=== PATIENT | male | born 1990 ===

== ENCOUNTER 2023-01-23 23:46 | Emergency (ER) | payer SELFPAY ==
[~2023-01-23] VITALS: Ht 165 cm; Wt 74.0 kg
--- NOTE | 2023-01-24 00:21 | ED General ---
General Chief Complaint: COVID19 Suspect/Confirmed Stated Complaint: SORE THROAT/HEADACHE/FEVER Nursing Triage Note: TO ED VIA POV AND AMBULATORY TO ROOM 9 WITH USE OF VIDEO SCREW CUTTER. PT C/O SORE THROAT, CHILLS, PHLEGM. PT ALSO STATES HE TRAVELED HERE FOR AN "EMERGENCY" AND IS NOT FROM HERE AND HAS NOT HAD DIALYSIS FOR SEVERAL DAYS. 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 NOT NOW HE IS HERE VISITING FROM [place], [place] FOR THE LAST WEEK-REPORTEDLY FOR A FAMILY OF NOTE, PT DOES NOT HAVE AN I.D. AND WILL NOT GIVE REGISTRATION ANY INFORMATION OTHER THAN NAME AND DATE OF . PT IS A DIALYSIS PATIENT AND HAS NOT HAD DIALYSIS SINCE LAST Saturday01/18/23--HE HAS NOT ATTEMPTED TO MAKE PRIOR ARRANGEMENTS TO GET DIALYSIS HERE AT ANY TIME FOR THE LAST WEEK. PT HAS RIGHT CENTRAL LINE FOR DIALYSIS. STATES HE CAME HERE TO GET DIALYSIS. ( PT WAS ADVISED THAT WE DO NOT HAVE DIALYSIS ) HE STATES HE HAS BEEN ON DIALYSIS FOR 3 MONTHS PT IS INSULIN DEPENDENT DIABETIC--DX AT AGE 16 AND HAS HTN AND HYPERLIPIDEMIA HE HAS NOT CHECKED HIS BLOOD SUGAR TODAY HE CLAIMS HE HAS TAKEN HIS MEDICATIONS TODAY NO SWELLING NO CHEST PAIN NO DIZZINESS NO GI SYMPTOMS PT IS NOT COVID OR FLU VACCINATED Allergies and Home Medications Allergies Coded Allergies: No Known Drug Allergies (Unverified , 01/24/23) Patient Home Medication List Home Medication List Reviewed: Yes Review of Systems Review of Systems Constitutional: chills EENTM: see HPI, nose congestion, throat pain Respiratory: see HPI, short of breath Cardiovascular: no symptoms reported Gastrointestinal: no symptoms reported Genitourinary: see HPI Musculoskeletal: no symptoms reported Skin: no symptoms reported Psychiatric/Neurological: See HPI, Headache Hematologic/Lymphatic: No Symptoms Reported Immunological/Allergic: no symptoms reported Past Ymjmgtz-Gpvzfc-Jlkyza Hx Patient Social History Tobacco Use?: No Substance use?: No Alcohol Use?: No Past Medical History Surgeries: Yes (RIGHT CENTRAL LINE FOR DIALYSIS) Dialysis Respiratory: No Cardiac: Yes High Cholesterol, Hypertension Neurological: No Genitourinary: Yes (ESRD ON HEMODIALYSIS) Renal Failure Gastrointestinal: No Musculoskeletal: No Endocrine: Yes (TYPE 1 DIABETIC DX AGE 16. TAKES INSULIN + GLIPIZIDE) HEENT: No Cancer: No Psychosocial: No Integumentary: No Blood Disorders: No Physical Exam Vital Signs Vital Signs - First Documented 01/24/23 01/24/23 00:06 01:47 Temp 37.1 Pulse 97 Resp 16 B/P (MAP) 189/115 (139) Pulse Ox 92 O2 Delivery Room Air O2 Flow Rate 2.00 Capillary Refill : Less Than 3 Seconds Height, Weight, BMI Height: '" Weight: lbs. oz. kg; 2.00 BMI Method: General Appearance: No Apparent Distress, WD/WN, Other (DOES NOT APPEAR ILL OR TO BE IN ANY DISCOMFORT OR DISTRESS. ) HEENT: PERRL/EOMI, TMs Normal, Normal ENT Inspection, Pharynx Normal Neck: Full Range of Motion, Normal Inspection, Non Tender, Supple; No JVD Respiratory: Normal Breath Sounds, No Accessory Muscle Use, No Respiratory Distress, Other (RIGHT CENTRAL LINE FOR DIALYSIS --NO SIGNS OF INFECTIN) Cardiovascular: Regular Rate, Rhythm, No Edema, No Gallop, No JVD, No Murmur, Normal Peripheral Pulses Gastrointestinal: Non Tender, Soft Back: No CVA Tenderness Extremity: Normal Capillary Refill, Normal Inspection, Normal Range of Motion, Non Tender, No Calf Tenderness, No Pedal Edema Neurologic/Psychiatric: Alert, Oriented x3, No Motor/Sensory Deficits, Normal Mood/Affect, study manager II-XII Norm as Tested Skin: Normal Color (), Warm/Dry; No Rash Progress/Results/Core Measures Suspected Sepsis SIRS Temperature: Pulse: 97 Respiratory Rate: 16 Laboratory Tests 01/24/23 00:17: White Blood Count 13.3H Blood Pressure 189 /115 Mean: 139 Laboratory Tests 01/24/23 00:17: Creatinine 13.60H, Platelet Count 238, Total Bilirubin 0.4 Results/Orders Lab Results Laboratory Tests Test 01/24/23 00:05 01/24/23 00:17 01/24/23 00:18 01/24/23 01:00 Range/Units Influenza Type A (RT-PCR) Not Detected Not Detecte Influenza Type B (RT-PCR) Not Detected Not Detecte SARS-CoV-2 RNA (RT-PCR) Not Detected Not Detecte Group A Streptococcus Screen Not Detected NotDetected White Blood Count 13.3 H 4.3-11.0 10^3/uL Red Blood Count 4.44 4.30-5.52 10^6/uL Hemoglobin 13.4 13.3-17.7 g/dL Hematocrit 40 40-54 % Mean Corpuscular Volume 90 80-99 fL Mean Corpuscular Hemoglobin 30 25-34 pg Mean Corpuscular Hemoglobin Concent 34 32-36 g/dL Red Cell Distribution Width 12.4 10.0-14.5 % Platelet Count 238 130-400 10^3/uL Mean Platelet Volume 9.8 9.0-12.2 fL Immature Granulocyte % (Auto) 0 % Neutrophils (%) (Auto) 74 42-75 % Lymphocytes (%) (Auto) 17 12-44 % Monocytes (%) (Auto) 6 0-12 % Eosinophils (%) (Auto) 3 0-10 % Basophils (%) (Auto) 1 0-10 % Neutrophils # (Auto) 9.8 H 1.8-7.8 10^3/uL Lymphocytes # (Auto) 2.2 1.0-4.0 10^3/uL Monocytes # (Auto) 0.8 0.0-1.0 10^3/uL Eosinophils # (Auto) 0.4 H 0.0-0.3 10^3/uL Basophils # (Auto) 0.1 0.0-0.1 10^3/uL Immature Granulocyte # (Auto) 0.1 0.0-0.1 10^3/uL Sodium Level 142 135-145 MMOL/L Potassium Level 5.0 3.6-5.0 MMOL/L Chloride Level 106 98-107 MMOL/L Carbon Dioxide Level 20 L 21-32 MMOL/L Anion Gap 16 H 5-14 MMOL/L Blood Urea Nitrogen 60 H 7-18 MG/DL Creatinine 13.60 H 0.60-1.30 MG/DL Estimat Glomerular Filtration Rate 5 BUN/Creatinine Ratio 4 Glucose Level 188 H 70-105 MG/DL Calcium Level 7.6 L 8.5-10.1 MG/DL Corrected Calcium 8.1 L 8.5-10.1 MG/DL Magnesium Level 1.9 1.6-2.4 MG/DL Total Bilirubin 0.4 0.1-1.0 MG/DL Aspartate Amino Transf (AST/SGOT) 14 5-34 U/L Alanine Aminotransferase (ALT/SGPT) 16 0-55 U/L Alkaline Phosphatase 163 H 40-136 U/L Total Protein 6.1 L 6.4-8.2 GM/DL Albumin 3.4 3.2-4.5 GM/DL Serum Alcohol < 10 <10 MG/DL Glucometer 182 H 70-110 MG/DL Blood Gas Puncture Site RRAD Blood Gas Patient Temperature 37.1 Arterial Blood pH 7.39 7.37-7.43 Arterial Blood Partial Pressure CO2 43 35-45 MMHG Arterial Blood Partial Pressure O2 43 L 79-93 MMHG Arterial Blood HCO3 25 23-27 MMOL/L Arterial Blood Total CO2 26.6 21.0-31.0 MMOL/L Arterial Blood Oxygen Saturation 75 L 94-100 % Arterial Blood Base Excess 0.9 -2.5-2.5 MMOL/L Deny Test YES-POS Blood Gas Ventilator Setting NO Blood Gas Inspired Oxygen RA Test 01/24/23 01:30 Range/Units Urine Color YELLOW Urine Clarity CLEAR Urine pH 8.5 5-9 Urine Specific Sutton 1.020 1.016-1.022 Urine Protein 3+ H NEGATIVE Urine Glucose (UA) 2+ H NEGATIVE Urine Ketones NEGATIVE NEGATIVE Urine Nitrite NEGATIVE NEGATIVE Urine Bilirubin NEGATIVE NEGATIVE Urine Urobilinogen 0.2 < = 1.0 MG/DL Urine Leukocyte Esterase NEGATIVE NEGATIVE Urine RBC (Auto) 2+ H NEGATIVE Urine RBC 0-2 /HPF Urine WBC RARE /HPF Urine Squamous Epithelial Cells RARE /HPF Urine Crystals NONE /LPF Urine Bacteria NEGATIVE /HPF Urine Casts NONE /LPF Urine Mucus SMALL H /LPF Urine Culture Indicated NO Urine Opiates Screen NEGATIVE NEGATIVE Urine Oxycodone Screen NEGATIVE NEGATIVE Urine Methadone Screen NEGATIVE NEGATIVE Urine Propoxyphene Screen NEGATIVE NEGATIVE Urine Barbiturates Screen NEGATIVE NEGATIVE Ur Tricyclic Antidepressants Screen NEGATIVE NEGATIVE Urine Phencyclidine Screen NEGATIVE NEGATIVE Urine Amphetamines Screen NEGATIVE NEGATIVE Urine Methamphetamines Screen NEGATIVE NEGATIVE Urine Benzodiazepines Screen NEGATIVE NEGATIVE Urine Cocaine Screen NEGATIVE NEGATIVE Urine Cannabinoids Screen NEGATIVE NEGATIVE My Orders Orders - ISIS HALL DO Covid 19 Inhouse Test (01/24/23 00:04) Influenza A And B By Pcr (01/24/23 00:04) Rapid Strep A Screen (01/24/23 00:04) Accucheck Stat ONCE (01/24/23 00:13) Ed Iv/Invasive Line Start (01/24/23 00:13) Ekg Tracing (01/24/23 00:13) Monitor-Rhythm Ecg Trace Only (01/24/23 00:13) Chest 1 View, Ap/Pa Only (01/24/23 00:13) Cbc With Automated Diff (01/24/23 00:13) Comprehensive Metabolic Panel (01/24/23 00:13) Magnesium (01/24/23 00:13) Hydralazine Injection (Hydralazine Injec (01/24/23 01:00) Arterial Blood Gas (01/24/23 00:51) Alcohol (01/24/23 01:28) Drug Screen Stat (Urine) (01/24/23 01:28) Ua Culture If Indicated (01/24/23 01:28) Labetalol Injection (Sdv) (Labetalol Inj (01/24/23 01:45) O2 (01/24/23 01:46) Medications Given in ED Current Medications Medications Dose Ordered Sig/Zina Route Start Time Stop Time Status Last Admin Dose Admin Hydralazine HCl 10 mg ONCE ONCE IV 01/24/23 01:00 01/24/23 01:01 DC 01/24/23 00:58 10 MG Labetalol HCl 20 mg ONCE ONCE IV 01/24/23 01:45 01/24/23 01:46 DC 01/24/23 01:54 20 MG Vital Signs/I&O 01/24/23 01/24/23 01/24/23 01/24/23 00:06 00:06 01:47 01:58 Temp 37.1 36.8 Pulse 97 97 Resp 16 B/P (MAP) 189/115 (139) 157/112 (127) Pulse Ox 92 96 O2 Delivery Room Air Room Air Nasal Cannula Nasal Cannula O2 Flow Rate 2.00 2.00 Capillary Refill : Less Than 3 Seconds Blood Pressure Mean: 139 Progress Note : Progress Note VITALS ON ARRIVAL: TEMP 37.1=98.8, HR 97, RR 16, BP 189/115, O2 SAT 92% ON ROOM AIR ACCUCHECK 182 GIVEN: -HYDRALAZINE -LABETALOL LABS: -CBC 13.3, OTHERWISE UNREMARKABLE -CMP WITH NA 142, K 5.0, CO2 20, ANION GAP 16, BUN 60, CR 13.6, GLU 18, CALCIUM 7.6 -UA WITH 3+ PROTEIN, 2+ GLUCOSE -ETOH NEGATIVE -UDS NEGATIVE -COVID, FLU, STREP ALL NEGATIVE -ABG UNREMARKABLE WITH PH 7.39 CXR SHOWS FLUID OVERLOAD, PENDING RADIOLOGIST REVIEW EKG SHOWS IVCD NO COUGH NO DYSPNEA NO HYPOXIA NO FEVER NO DETERIORATION IN PT'S CONDITION DURING ER STAY NO SIGNIFICANT CHANGE IN BP WITH MEDICATION, AND NO DROP IN HEART RATE WITH LABETALOL DISCUSSED TEST RESULTS, NEED FOR TRANSFER AND PT IS AGREEABLE TO PLAN ECG Initial ECG Impression Date: Jan 24, 2023 Initial ECG Impression Time: 00:23 Initial ECG Rate: 94 Initial ECG Rhythm: Normal Sinus Initial ECG Intervals RI 135 QRS 110 QT/QTC 363/414 Initial ECG Comparisson: No Previous ECG Available Comment INTERPRETED BY ME Diagnostic Imaging Comments CXR--FLUID OVERLOAD, PENDING RADIOLOGIST REVIEW Reviewed: Reviewed by Me Departure Communication (Admissions) 0052--CALLED [facility], NO BEDS 0054--CALLED [facility]. THEY WILL CALL BACK 0131--SPOKE WITH DR. PAREDES, HOSPITALIST AT [facility]. ACCEPTS PT FOR ADMIT Impression Primary Impression: ESRD (end stage renal disease) on dialysis Additional Impressions: COVID LIKE ILLNESS Uncontrolled hypertension TYPE 1 IDDM Fluid overload Disposition: 02 XFER SHT-TRM HOSP Condition: Stable Transfer Transfer Reason: Exceeds level of care (DIALYSIS/NEPHROLOGY SERVICES UNAVAILABLE HERE) Transfer Facility: [facility] Method of Transfer: EMS ISIS HALL DO Jan 24, 2023 00:21
[2023-01-24 00:31] LABS: BASOPHILS # (AUTO) 0.1 10^3/uL (0.0-0.1); BASOPHILS % (AUTO) 1 % (0-10); EOSINOPHILS # (AUTO) 0.4 10^3/uL (0.0-0.3); EOSINOPHILS % (AUTO) 3 % (0-10); HEMATOCRIT 40 % (40-54); HEMOGLOBIN 13.4 g/dL (13.3-17.7); LYMPHOCYTES # (AUTO) 2.2 10^3/uL (1.0-4.0); LYMPHOCYTES % (AUTO) 17 % (12-44); MEAN CORPUSCULAR HEMOGLOBIN 30 pg (25-34); MEAN CORPUSCULAR HGB CONC 34 g/dL (32-36); MEAN CORPUSCULAR VOLUME 90 fL (80-99); MEAN PLATELET VOLUME 9.8 fL (9.0-12.2); MONOCYTES # (AUTO) 0.8 10^3/uL (0.0-1.0); MONOCYTES % (AUTO) 6 % (0-12); NEUTROPHILS # (AUTO) 9.8 10^3/uL (1.8-7.8); NEUTROPHILS % (AUTO) 74 % (42-75); PLATELET COUNT 238 10^3/uL (130-400); WHITE BLOOD COUNT 13.3 10^3/uL (4.3-11.0)
[2023-01-24 00:42] LABS: ALBUMIN 3.4 GM/DL (3.2-4.5)
[2023-01-24 00:43] LABS: CALCIUM 7.6 MG/DL (8.5-10.1)
[2023-01-24 00:44] LABS: TOTAL PROTEIN 6.1 GM/DL (6.4-8.2)
[2023-01-24 00:46] LABS: BILIRUBIN,TOTAL 0.4 MG/DL (0.1-1.0)
[2023-01-24 00:48] LABS: CREATININE SERUM 13.6 MG/DL (0.60-1.30)
[2023-01-24 00:51] LABS: MAGNESIUM 1.9 MG/DL (1.6-2.4)
[2023-01-24] MEDS ORDERED: hydrALAZINE INJECTION 20 MG/ML VIAL IV ONE (01:00)
[2023-01-24 01:06] LABS: ABG BASE EXCESS 0.9 MMOL/L (-2.5-2.5); ABG OXYGEN SATURATION 75 % (94-100); ABG PCO2 43 MMHG (35-45); ABG PH 7.39 (7.37-7.43); ABG PO2 43 MMHG (79-93); ABG TCO2 26.6 MMOL/L (21.0-31.0)
[2023-01-24 01:07] LABS: ALLENS TEST YES-POS; INSPIRED O2 RA; PATIENT TEMP 37.1; VENTILATOR NO
[2023-01-24 01:42] LABS: CLARITY,URINE CLEAR; COLOR,URINE YELLOW; GLUCOSE, URINE (UA) 2+ (NEGATIVE); PH,URINE 8.5 (5-9); PROTEIN,URINE 3+ (NEGATIVE)
[2023-01-24 01:43] LABS: BILIRUBIN,URINE NEGATIVE (NEGATIVE); KETONES,URINE NEGATIVE (NEGATIVE); LEUKOCYTE ESTERASE ,URINE NEGATIVE (NEGATIVE); NITRITE,URINE NEGATIVE (NEGATIVE)
[2023-01-24 01:45] LABS: BACTERIA,URINE NEGATIVE /HPF; RBC,URINE 0-2 /HPF; SQUAMOUS EPITHELIAL CELL,UR RARE /HPF; WBC,URINE RARE /HPF
[2023-01-24] MEDS ORDERED: LABETALOL 5 mg/ml 4 ML SINGLE DOSE SYRINGE IV ONE (01:45)
[2023-01-24 01:51] LABS: AMPHETAMINE SCREEN, URINE NEGATIVE (NEGATIVE); BARBITURATE SCREEN URINE NEGATIVE (NEGATIVE); BENZODIAZEPINES SCREEN URINE NEGATIVE (NEGATIVE); CANNABINOID SCREEN, URINE NEGATIVE (NEGATIVE); COCAINE SCREEN URINE NEGATIVE (NEGATIVE); METHADONE STAT NEGATIVE (NEGATIVE); OPIATE SCREEN URINE NEGATIVE (NEGATIVE); OXYCODONE STAT NEGATIVE (NEGATIVE); PROPOXYPHENE STAT NEGATIVE (NEGATIVE); TRICYCLIC ANTIDEPRESSANTS SCRE NEGATIVE (NEGATIVE)
[2023-01-24 03:22] VITALS: BP 174/102
--- NOTE | 2023-01-24 08:15 | Diagnostic Imaging Report ---
INDICATION: Fluid overload FINDINGS: Right IJ dialysis catheter tip is at the cavoatrial junction. Heart size upper limits. There is some mild prominence of the central and upper lobe pulmonary vessels as well as likely multifocal areas of pulmonary edema, correlate clinically as pneumonia could not be excluded in the appropriate scenario. No pleural fluid. No pneumothorax. IMPRESSION: There is a likely some borderline cardiomegaly, venous congestion and likely multifocal pulmonary edema. The possibility of pneumonia in the appropriate clinical scenario could not be excluded. Central line in good position with no pneumothorax or convincing pleural fluid. Dictated by: Dictated on workstation # [id number]
== END 2023-01-24 03:22 | disposition short-term general hospital (02) ==
LOC: ER 23:50
DX: E10.22 Type 1 diabetes mellitus with diabetic chronic kidney disease (principal); I12.0 Hypertensive chronic kidney disease with stage 5 chronic kidney disease or end stage renal disease; N18.6 End stage renal disease; E87.70 Fluid overload, unspecified; Z99.2 Dependence on renal dialysis; Z28.310 Unvaccinated for COVID-19; Z20.822 Contact with and (suspected) exposure to COVID-19
CPT/HCPCS: 71045; 80053; 80306; 81000; 82805; 82947; 83735; 85025; 87430; 87636; 93005; 93041; 99291; G0480; 36415; 80320

== ENCOUNTER → 2023-02-27 | Outpatient (CLI) | payer SELFPAY | LOC: LABNPT 15:57 | PROVIDERS: ATTEND Internal Medicine Nephrology | DX: Z99.2 Dependence on renal dialysis (principal) | CPT/HCPCS: 82330 ==

== ENCOUNTER 2023-03-10 14:12 | Emergency (ER) | payer SELFPAY ==
[~2023-03-10] VITALS: Ht 165 cm; Wt 73.4 kg
[2023-03-10 14:56] LABS: BASOPHILS # (AUTO) 0.1 10^3/uL (0.0-0.1); BASOPHILS % (AUTO) 0 % (0-10); EOSINOPHILS % (AUTO) 0 % (0-10); HEMATOCRIT 27 % (40-54); HEMOGLOBIN 9.3 g/dL (13.3-17.7); LYMPHOCYTES # (AUTO) 0.9 10^3/uL (1.0-4.0); LYMPHOCYTES % (AUTO) 6 % (12-44); MEAN CORPUSCULAR HEMOGLOBIN 29 pg (25-34); MEAN CORPUSCULAR HGB CONC 34 g/dL (32-36); MEAN CORPUSCULAR VOLUME 85 fL (80-99); MEAN PLATELET VOLUME 10.6 fL (9.0-12.2); MONOCYTES # (AUTO) 0.6 10^3/uL (0.0-1.0); MONOCYTES % (AUTO) 4 % (0-12); NEUTROPHILS # (AUTO) 13.6 10^3/uL (1.8-7.8); NEUTROPHILS % (AUTO) 90 % (42-75); PLATELET COUNT 175 10^3/uL (130-400); WHITE BLOOD COUNT 15.2 10^3/uL (4.3-11.0)
--- NOTE | 2023-03-10 14:59 | ED Cough/URI ---
General Chief Complaint: Fever-Adult/Adol Stated Complaint: CHEST PAIN/SOA Nursing Triage Note: PT TO RM 2 BY WC WITH C/O FEVER, COUGH, CHEST PAIN , SOB X2 DAYS Source: patient Exam Limitations: no limitations, language barrier History of Present Illness Date Seen by Provider: Mar 10, 2023 Time Seen by Provider: 14:57 Initial Comments Patient is a 33-year-old male who is speaking who presents ED with sore throat chills coughing up phlegm headache shortness of breath some mild chest pain. Symptoms started last night. Patient is currently on dialysis. Receives dialysis 3 times a week. Patient does have a right central line for dialysis. Patient states symptoms became worse today with some substernal chest pain. Does not appear to have swelling in his lower extremities. Patient does have a history of hypertension and diabetes. Has not taken his medication today. Patient reports some vomiting. Denies of any diarrhea. States he is able to urinate. Currently follows a lobby porter who patient cannot recall. Allergies and Home Medications Allergies Coded Allergies: No Known Drug Allergies (Unverified , 01/24/23) Patient Home Medication List Home Medication List Reviewed: Yes Review of Systems Review of Systems Constitutional: No chills, No diaphoresis; malaise, weakness EENTM: No ear pain, No blurred vision, No double vision Respiratory: cough; No dyspnea on exertion; short of breath Cardiovascular: chest pain Gastrointestinal: No abdominal pain; diarrhea; No nausea, No vomiting Genitourinary: No decreased output, No discharge Musculoskeletal: No back pain Skin: No change in color, No change in hair/nails All Other Systems Reviewed Negative Unless Noted: Yes Past Fbvnuhd-Lwqmlp-Rmbbpl Hx Patient Social History Tobacco Use?: No Substance use?: No Alcohol Use?: No Pt feels they are or have been: No Immunizations Up To Date Influenza Vaccine Up-to-Date: Yes; Up-to-Date Past Medical History Surgery/Hospitalization HX: DM, DAILYSIS, HTN, HLD Surgeries: Yes (RIGHT CENTRAL LINE FOR DIALYSIS) Dialysis Respiratory: No Cardiac: Yes High Cholesterol, Hypertension Neurological: No Genitourinary: Yes (ESRD ON HEMODIALYSIS) Renal Failure Gastrointestinal: No Musculoskeletal: No Endocrine: Yes (TYPE 1 DIABETIC DX AGE 16. TAKES INSULIN + GLIPIZIDE) HEENT: No Cancer: No Psychosocial: No Integumentary: No Blood Disorders: No Physical Exam Vital Signs - First Documented 03/10/23 03/10/23 14:15 14:25 Temp 37.6 Pulse 110 Resp 24 B/P (MAP) 200/112 (141) Pulse Ox 93 O2 Delivery Room Air O2 Flow Rate 2.00 Capillary Refill : Height: '" Weight: lbs. oz. kg; 26.00 BMI Method: General Appearance: WD/WN, no apparent distress Eyes: Bilateral Eye Normal Inspection, Bilateral Eye PERRL, Bilateral Eye EOMI HEENT: PERRL/EOMI, normal ENT inspection, TMs normal, pharynx normal Neck: non-tender, full range of motion Respiratory: chest non-tender, lungs clear, normal breath sounds, no respiratory distress Cardiovascular: regular rate, rhythm, no edema, no gallop, no JVD Gastrointestinal: normal bowel sounds, non tender, soft Extremities: normal range of motion, non-tender, normal inspection, no pedal edema Neurologic/Psychiatric: dental intern II-XII nml as tested, no motor/sensory deficits, alert, normal mood/affect, oriented x 3 Skin: normal color, warm/dry Focused Exam Lactate Level 03/10/23 14:25: Lactic Acid Level 1.30 Lactic Acid Level Laboratory Tests Test 03/10/23 14:25 Lactic Acid Level 1.30 MMOL/L (0.50-2.00) Progress/Results/Core Measures Suspected Sepsis SIRS Temperature: Pulse: 110 Respiratory Rate: 24 Laboratory Tests 03/10/23 14:25: White Blood Count 15.2H Blood Pressure 200 /112 Mean: 141 03/10/23 14:25: Lactic Acid Level 1.30 Laboratory Tests 03/10/23 14:25: Creatinine 10.51H, INR Comment 1.1, Platelet Count 175, Total Bilirubin 0.8 Results/Orders Lab Results Laboratory Tests Test 03/10/23 14:19 03/10/23 14:20 03/10/23 14:25 03/10/23 14:56 Range/Units Glucometer 240 H 70-110 MG/DL Influenza Type A (RT-PCR) Not Detected Not Detecte Influenza Type B (RT-PCR) Not Detected Not Detecte SARS-CoV-2 RNA (RT-PCR) Not Detected Not Detecte White Blood Count 15.2 H 4.3-11.0 10^3/uL Red Blood Count 3.18 L 4.30-5.52 10^6/uL Hemoglobin 9.3 L 13.3-17.7 g/dL Hematocrit 27 L 40-54 % Mean Corpuscular Volume 85 80-99 fL Mean Corpuscular Hemoglobin 29 25-34 pg Mean Corpuscular Hemoglobin Concent 34 32-36 g/dL Red Cell Distribution Width 12.6 10.0-14.5 % Platelet Count 175 130-400 10^3/uL Mean Platelet Volume 10.6 9.0-12.2 fL Immature Granulocyte % (Auto) 0 % Neutrophils (%) (Auto) 90 H 42-75 % Lymphocytes (%) (Auto) 6 L 12-44 % Monocytes (%) (Auto) 4 0-12 % Eosinophils (%) (Auto) 0 0-10 % Basophils (%) (Auto) 0 0-10 % Neutrophils # (Auto) 13.6 H 1.8-7.8 10^3/uL Lymphocytes # (Auto) 0.9 L 1.0-4.0 10^3/uL Monocytes # (Auto) 0.6 0.0-1.0 10^3/uL Eosinophils # (Auto) 0.0 0.0-0.3 10^3/uL Basophils # (Auto) 0.1 0.0-0.1 10^3/uL Immature Granulocyte # (Auto) 0.0 0.0-0.1 10^3/uL Neutrophils % (Manual) 93 % Lymphocytes % (Manual) 4 % Monocytes % (Manual) 3 % Eosinophils % (Manual) 0 % Basophils % (Manual) 0 % Band Neutrophils 0 % Blood Morphology Comment NORMAL Prothrombin Time 14.7 12.2-14.7 SEC INR Comment 1.1 0.8-1.4 Activated Partial Thromboplast Time 30 24-35 SEC Sodium Level 139 135-145 MMOL/L Potassium Level 3.9 3.6-5.0 MMOL/L Chloride Level 101 98-107 MMOL/L Carbon Dioxide Level 20 L 21-32 MMOL/L Anion Gap 18 H 5-14 MMOL/L Blood Urea Nitrogen 58 H 7-18 MG/DL Creatinine 10.51 H 0.60-1.30 MG/DL Estimat Glomerular Filtration Rate 6 BUN/Creatinine Ratio 6 Glucose Level 249 H 70-105 MG/DL Lactic Acid Level 1.30 0.50-2.00 MMOL/L Calcium Level 7.0 L 8.5-10.1 MG/DL Corrected Calcium 7.6 L 8.5-10.1 MG/DL Total Bilirubin 0.8 0.1-1.0 MG/DL Aspartate Amino Transf (AST/SGOT) 13 5-34 U/L Alanine Aminotransferase (ALT/SGPT) 19 0-55 U/L Alkaline Phosphatase 145 H 40-136 U/L Total Protein 5.9 L 6.4-8.2 GM/DL Albumin 3.3 3.2-4.5 GM/DL Troponin I 0.090 H <0.028 NG/ML My Orders Orders - DUTCH MARTINEZ Covid 19 Inhouse Test (03/10/23 14:21) Influenza A And B By Pcr (03/10/23 14:21) Cbc And Automated Diff (03/10/23 14:48) Comprehensive Metabolic Panel (03/10/23 14:48) Blood Culture (03/10/23 14:48) Sputum Culture (03/10/23 14:48) Urinalysis (03/10/23 14:48) Urine Culture (03/10/23 14:48) Protime With Inr (03/10/23 14:48) Partial Thromboplastin Time (03/10/23 14:48) Chest 1 View, Ap/Pa Only (03/10/23 14:48) Ed Iv/Invasive Line Start (03/10/23 14:48) Vital Signs Adult Sepsis Patie Q15M (03/10/23 14:48) O2 (03/10/23 14:48) Remove Rings In Anticipation O (03/10/23 14:48) Lactic Acid Analyzer (03/10/23 14:48) Troponin I Morris (03/10/23 14:55) Labetalol Injection (Sdv) (Labetalol Inj (03/10/23 15:00) Manual Differential (03/10/23 14:25) Cefepime Injection (Cefepime Injection) (03/10/23 15:45) Ipratropium/Albuterol Inh Soln (Ipratrop (03/10/23 18:15) Svn Small Volume Nebulizer (03/10/23 18:07) Methylprednisolone Sod Succ (Methylpredn (03/10/23 18:30) Rt Ed Bilevel Assessment (03/10/23 18:33) Bipap (Bilevel) Set Up (03/10/23 18:33) Heart Healthy (03/10/23 Dinner) Medications Given in ED Current Medications Medications Dose Ordered Sig/Zina Route Start Time Stop Time Status Last Admin Dose Admin Albuterol/ Ipratropium 3 ml ONCE ONCE INH 03/10/23 18:15 03/10/23 18:16 DC 03/10/23 18:28 3 ML Cefepime HCl 1000 mg/Sodium Chloride 50 ml @ 100 mls/hr ONCE ONCE IV 03/10/23 15:45 03/10/23 16:14 DC 03/10/23 16:00 100 MLS/HR Labetalol HCl 10 mg ONCE ONCE IV 03/10/23 15:00 03/10/23 15:01 DC 03/10/23 15:05 10 MG Methylprednisolone Sodium Succinate 80 mg ONCE ONCE IV 03/10/23 18:30 03/10/23 18:31 DC 03/10/23 18:34 80 MG Vital Signs/I&O 03/10/23 03/10/23 03/10/23 03/10/23 14:15 14:25 18:30 18:39 Temp 37.6 Pulse 110 111 Resp 24 B/P (MAP) 200/112 (141) Pulse Ox 93 92 93 96 O2 Delivery Room Air Nasal Cannula Nasal Cannula O2 Flow Rate 2.00 2.00 30.00 03/10/23 21:54 Pulse 96 Resp 19 Pulse Ox 98 O2 Flow Rate 25.00 Capillary Refill : Blood Pressure Mean: 141 Point of Care Testing Finger Stick Blood Glucose: 240 Blood Glucose Action Taken: RN notified ECG Comment Ectopic atrial tachycardia with short MT interval, possible left atrial argu ment, incomplete right bundle branch block, possible right ventricular hypertrophy, 114 bpm, QRS duration 96 MS, QTc 398 MS Departure Communication (PCP) speaking. [employer] was used. History of chronic kidney disease requiring dialysis 3 times a week, hypertension, diabetes. Told nursing staff he did dialysis 3 days ago. He is scheduled for dialysis Saturday. States he did do his dialysis this past week. Patient cannot recall who his lobby porter is. Patient was seen here in January transferred for pneumonia versus pulmonary edema. Patient with a low-grade temperature 37.6. Septic work-up was initiated. Flulike symptoms since yesterday. Reports cough shortness of breath. CBC, CMP, lipase, cardiac work-up COVID influenza and chest x-ray. EKG without evidence of ST elevation or depression. White blood count of 15. Chemistry showed creatinine of 10 GFR 6 fairly stable. Blood sugar 249. Had a slight increase of troponin 0.090. He had chest pain before arrival but no current chest pain at this time. Lactic acid 1.30. Chest x-ray shows multifocal pneumonia versus pulmonary edema versus arts. Patient oxygen was in the upper 80s lower 90s. He was tachypneic. 2 L of oxygen was placed for comfort with improvement to 94 to 95%. Did receive a DuoNeb breathing treatment received Solu-Medrol 80 mg. Received a dose of cefepime. He was hypertensive here and has not taken his blood pressure medication. Received labetalol 10 mg without much improvement. Contacted [facility] with no current beds at this time. Contacted [facility] talk to Dr. Lazo ER physician who agreed to accept patient. Do not have dialysis at our facility which warrant transfer at this time. Contacted ground have no current transportation at this time. Due to weather no air transportation. Patient was held in our ER. Patient was placed on BiPAP for more comfort to help with perfusion. His heart rate did improve as well as his blood pressure after starting BiPAP. Patient states he was feeling much better. He does not produce much urine. Did not obtain a urinalysis here. At 11 PM med flight agreed to transfer patient to [facility]. Patient is currently stable at this time oxygen 97% on BiPAP. Heart rate improved to 92 bpm. Blood pressure improved to 156/105. Impression Primary Impression: Pneumonia Additional Impressions: Respiratory distress Pulmonary edema Disposition: 02 XFER SHT-TRM HOSP Condition: Stable Transfer BH Medically Cleared for Xfer: Yes Transfer Reason: Exceeds level of care Time Spoke to Accepting Phy: 15:[address] Lazo Transfer Time: 15:31 Transfer Facility: [facility] Method of Transfer: Air ([facility] mature adult care unit) Departure-Patient Inst. Referrals: NO,LOCAL PHYSICIAN (PCP/Family) Primary Care Physician DUTCH MARTINEZ Mar 10, 2023 14:59
[2023-03-10] MEDS ORDERED: LABETALOL 5 mg/ml 4 ML SINGLE DOSE SYRINGE IV ONE (15:00)
[2023-03-10 15:03] LABS: ALBUMIN 3.3 GM/DL (3.2-4.5); POTASSIUM 3.9 MMOL/L (3.6-5.0)
[2023-03-10 15:05] LABS: TOTAL PROTEIN 5.9 GM/DL (6.4-8.2)
[2023-03-10 15:07] LABS: BILIRUBIN,TOTAL 0.8 MG/DL (0.1-1.0)
[2023-03-10 15:09] LABS: CREATININE SERUM 10.51 MG/DL (0.60-1.30)
[2023-03-10 15:13] LABS: INR 1.1 (0.8-1.4); PROTHROMBIN TIME PATIENT 14.7 SEC (12.2-14.7)
--- NOTE | 2023-03-10 15:33 | Diagnostic Imaging Report ---
EXAMINATION: Chest 1 view HISTORY: Shortness of breath. COMPARISON: 01/24/2023. FINDINGS: Right internal jugular approach double lumen dialysis catheter is in place. The cardiac silhouette is stable. Increasing patchy and hazy opacities are seen throughout both lungs since the prior exam. No pleural effusion or pneumothorax. IMPRESSION: 1. Worsening opacities throughout both lungs, which may represent edema, ARDS, or multifocal infection. Dictated by: Dictated on workstation # [id number]
[2023-03-10 15:40] LABS: BAND NEUTROPHILS 0 %; BASOPHILS % (MANUAL) 0 %; EOSINOPHILS % (MANUAL) 0 %; LYMPHOCYTES % (MANUAL) 4 %; MONOCYTES % (MANUAL) 3 %; NEUTROPHILS % (MANUAL) 93 %; RBC MORPH NORMAL
[2023-03-10] MEDS ORDERED: CEFEPIME INJECTION 1,000 MG in NS (IVPB) 50 ML 50 ML IV ONE (15:45)
[2023-03-10] MEDS ORDERED: CEFEPIME 1 GM/10 ML VIAL ONE (15:55)
[2023-03-10] MEDS ORDERED: RT-Ipratropium/Albuterol NEB 3 ML VIAL INH ONE (18:15)
[2023-03-10] MEDS ORDERED: methylPREDNISolone INJ 40 MG/ML VIAL IV ONE (18:30)
[2023-03-10 18:39] VITALS: BP 190/120
[2023-03-10 21:54] VITALS: BP 169/112
[2023-03-10 23:00] VITALS: BP 153/101
== END 2023-03-10 23:30 | disposition short-term general hospital (02) ==
LOC: EDUNIT# 14:12 → ER 14:15
DX: J18.9 Pneumonia, unspecified organism (principal); R06.03 Acute respiratory distress; J81.1 Chronic pulmonary edema; E10.22 Type 1 diabetes mellitus with diabetic chronic kidney disease; I12.0 Hypertensive chronic kidney disease with stage 5 chronic kidney disease or end stage renal disease; N18.6 End stage renal disease; Z99.2 Dependence on renal dialysis
CPT/HCPCS: 36415; 71045; 80053; 82947; 83605; 84484; 85007; 85027; 85610; 85730; 87040; 87636; 93005; 94640; 94660; 94664; 96365; 96375

== ENCOUNTER 2023-03-21 00:54 | Emergency (ER) | payer SELFPAY ==
[~2023-03-21] VITALS: Ht 167.7 cm; Wt 72.6 kg
--- NOTE | 2023-03-21 01:12 | ED General ---
General Stated Complaint: SOA Source of Information: Patient Exam Limitations: Language Barrier History of Present Illness Date Seen by Provider: Mar 21, 2023 Time Seen by Provider: 00:58 Initial Comments 33-year-old male presents via EMS. 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 He tells me he has felt unwell for 3 days. He is short of breath, especially with lying flat. He does have end-stage renal disease and is on dialysis. He dialyzes Saturday and states he did have dialysis completed this morning. He believes he has had fevers to 102 and has a productive cough. He tells me he is still on antibiotics after recent diagnosis of pneumonia. Record review shows he was transferred to [place] on 03/10 for pulmonary edema versus pneumonia. All other systems reviewed and negative except documented per HPI. Voice recognition software was used to help create this chart Allergies and Home Medications Allergies Coded Allergies: No Known Drug Allergies (Unverified , 01/24/23) Patient Home Medication List Home Medication List Reviewed: Yes Review of Systems Review of Systems Constitutional: see HPI Past [id number]-Rishlp Hx Patient Social History Tobacco Use?: No Use of E-Cig and/or Vaping dev: No Substance use?: No Alcohol Use?: No Past Medical History Surgery/Hospitalization HX: DM, DAILYSIS, HTN, HLD Surgeries: Yes (RIGHT CENTRAL LINE FOR DIALYSIS) Dialysis Respiratory: No Cardiac: Yes High Cholesterol, Hypertension Neurological: No Genitourinary: Yes (ESRD ON HEMODIALYSIS) Renal Failure Gastrointestinal: No Musculoskeletal: No Endocrine: Yes (TYPE 1 DIABETIC DX AGE 16. TAKES INSULIN + GLIPIZIDE) HEENT: No Cancer: No Psychosocial: No Integumentary: No Blood Disorders: No Physical Exam Vital Signs Vital Signs - First Documented Capillary Refill : Height, Weight, BMI Height: '" Weight: lbs. oz. kg; 26.00 BMI Method: General Appearance: No Apparent Distress, WD/WN HEENT: Normal ENT Inspection, Pharynx Normal Neck: Normal Inspection, Non Tender, Supple Respiratory: Chest Non Tender, Normal Breath Sounds, No Accessory Muscle Use, No Respiratory Distress, Other (mild hypoxia) Cardiovascular: Regular Rate, Rhythm, No Murmur, Normal Peripheral Pulses Gastrointestinal: Normal Bowel Sounds, No Organomegaly, Non Tender, Soft Extremity: Normal Capillary Refill, Normal Inspection, Normal Range of Motion, No Pedal Edema Neurologic/Psychiatric: Alert, Oriented x3, No Motor/Sensory Deficits Skin: Normal Color, Warm/Dry Focused Exam Lactate Level 03/21/23 01:10: Lactic Acid Level 1.64 Lactic Acid Level Laboratory Tests Test 03/21/23 01:10 Lactic Acid Level 1.64 MMOL/L (0.50-2.00) Progress/Results/Core Measures Suspected Sepsis SIRS Temperature: Pulse: Respiratory Rate: Laboratory Tests 03/21/23 01:10: White Blood Count 9.5 Blood Pressure / Mean: 03/21/23 01:10: Lactic Acid Level 1.64 Laboratory Tests 03/21/23 01:10: Creatinine 6.83H, Platelet Count 219, Total Bilirubin 0.4 Results/Orders Lab Results Laboratory Tests Test 03/21/23 01:10 03/21/23 01:16 03/21/23 07:02 03/21/23 07:42 Range/Units White Blood Count 9.5 4.3-11.0 10^3/uL Red Blood Count 2.73 L 4.30-5.52 10^6/uL Hemoglobin 8.0 L 13.3-17.7 g/dL Hematocrit 24 L 40-54 % Mean Corpuscular Volume 86 80-99 fL Mean Corpuscular Hemoglobin 29 25-34 pg Mean Corpuscular Hemoglobin Concent 34 32-36 g/dL Red Cell Distribution Width 13.0 10.0-14.5 % Platelet Count 219 130-400 10^3/uL Mean Platelet Volume 9.9 9.0-12.2 fL Immature Granulocyte % (Auto) 0 % Neutrophils (%) (Auto) 67 42-75 % Lymphocytes (%) (Auto) 25 12-44 % Monocytes (%) (Auto) 6 0-12 % Eosinophils (%) (Auto) 2 0-10 % Basophils (%) (Auto) 1 0-10 % Neutrophils # (Auto) 6.4 1.8-7.8 10^3/uL Lymphocytes # (Auto) 2.3 1.0-4.0 10^3/uL Monocytes # (Auto) 0.5 0.0-1.0 10^3/uL Eosinophils # (Auto) 0.2 0.0-0.3 10^3/uL Basophils # (Auto) 0.1 0.0-0.1 10^3/uL Immature Granulocyte # (Auto) 0.0 0.0-0.1 10^3/uL Sodium Level 135 135-145 MMOL/L Potassium Level 4.1 3.6-5.0 MMOL/L Chloride Level 94 L 98-107 MMOL/L Carbon Dioxide Level 28 21-32 MMOL/L Anion Gap 13 5-14 MMOL/L Blood Urea Nitrogen 30 H 7-18 MG/DL Creatinine 6.83 H 0.60-1.30 MG/DL Estimat Glomerular Filtration Rate 10 BUN/Creatinine Ratio 4 Glucose Level 438 *H 70-105 MG/DL Lactic Acid Level 1.64 0.50-2.00 MMOL/L Calcium Level 7.1 L 8.5-10.1 MG/DL Corrected Calcium 7.9 L 8.5-10.1 MG/DL Total Bilirubin 0.4 0.1-1.0 MG/DL Aspartate Amino Transf (AST/SGOT) 14 5-34 U/L Alanine Aminotransferase (ALT/SGPT) 21 0-55 U/L Alkaline Phosphatase 122 40-136 U/L Troponin I 0.157 H <0.028 NG/ML B-Type Natriuretic Peptide 931.2 H <100.0 PG/ML Total Protein 5.5 L 6.4-8.2 GM/DL Albumin 3.0 L 3.2-4.5 GM/DL Influenza Type A (RT-PCR) Not Detected Not Detecte Influenza Type B (RT-PCR) Not Detected Not Detecte SARS-CoV-2 RNA (RT-PCR) Not Detected Not Detecte Glucometer 58 *L 186 H 70-110 MG/DL Test 03/21/23 10:25 03/21/23 13:47 03/21/23 16:01 Range/Units Glucometer 274 H 294 H 298 H 70-110 MG/DL Micro Results Microbiology 03/21/23 Blood Culture - Preliminary, Resulted 03/21/23 Blood Culture - Preliminary, Resulted My Orders Orders - NITHYA HEATH DO Comprehensive Metabolic Panel (03/21/23 01:06) Chest 1 View, Ap/Pa Only (03/21/23 01:06) Cbc And Automated Diff (03/21/23 01:06) Bnp Swift (03/21/23 01:06) Blood Culture (03/21/23 01:06) Lactic Acid Analyzer (03/21/23 01:06) Vital Signs (03/21/23 01:06) Ed Iv/Invasive Line Start (03/21/23 01:06) Ipratropium/Albuterol Inh Soln (Ipratrop (03/21/23 01:15) Svn Small Volume Nebulizer (03/21/23 01:06) Troponin I Vashti (03/21/23 01:12) Covid 19 Inhouse Test (03/21/23 01:12) Ekg Tracing (03/21/23 01:12) Influenza A And B By Pcr (03/21/23 01:12) Insulin Aspart (Per Unit) (Insulin Aspar (03/21/23 02:45) General/Regular (03/21/23 Breakfast) Iv Push Claims Counsel Ed (03/21/23 ) Im/Sub-Q Injection Non-Ab Ed (03/21/23 ) Medications Given in ED Vital Signs/I&O 03/21/23 03/21/23 03/21/23 00:54 00:54 16:07 Temp 36.2 Pulse 92 106 Resp 24 17 B/P (MAP) 161/129 (140) 192/149 Pulse Ox 95 100 O2 Delivery Nasal Cannula Nasal Cannula Nasal Cannula O2 Flow Rate 2.00 2.00 3.00 Capillary Refill : Progress Note : Time: 02:43 Progress Note Patient is hemodynamically stable outside of some very mild hypoxia. Started on 2 L of oxygen via nasal cannula remained stable thereafter. Chest x-ray independently reviewed by myself showing some moderate pulmonary edema. Is greatly improved from prior comparison. No focal infiltrate to indicate pneumonia, no leukocytosis he is afebrile so I do not think there is an infectious component at this time. He has been on antibiotics we will hold on giving additional antibiotics for now. Labs are reassuring as are the remainder of his vitals. He is in no distress. I spoke with Dr. Blum at [facility] in [place] who accepts the patient in admission. Unfortunately patient transport states that he likely will not have any beds until the morning after discharges. We do not have ground transport anyway so I think it is likely fine for him to wait here until there is a bed available. He remained stable throughout the evening ECG Comment Sinus rhythm with rate of 90 bpm. Normal intervals. Normal axis. No ST or T wave abnormalities. No ectopy. No STEMI. No evidence for hyperkalemia. Departure Communication (Admissions) Patient has mild hypoxia, moderate pulmonary edema on his chest x-ray on independent review. Labs are reassuring. He is placed on 2 L oxygen via nasal cannula. He states he has not missed any dialysis however I question if he was actually dialyzed this morning. I spoke with hospitalist at [facility] in [place] who accepts the patient in transfer. They will not have beds until the morning so the patient will be boarded overnight with close observation. Patient ultimately transported in stable condition. Impression Primary Impression: ESRD (end stage renal disease) on dialysis Additional Impressions: Pulmonary edema Qualified Codes: J81.0 - Acute pulmonary edema Hyperglycemia Disposition: XFER SHT-TRM HOSP Condition: Stable Departure-Patient Inst. Referrals: NO,LOCAL PHYSICIAN (PCP/Family) Primary Care Physician NITHYA HEATH DO Mar 21, 2023 01:12
[2023-03-21] MEDS ORDERED: RT-Ipratropium/Albuterol NEB 3 ML VIAL INH ONE (01:15)
[2023-03-21 01:25] LABS: BASOPHILS # (AUTO) 0.1 10^3/uL (0.0-0.1); BASOPHILS % (AUTO) 1 % (0-10); EOSINOPHILS # (AUTO) 0.2 10^3/uL (0.0-0.3); EOSINOPHILS % (AUTO) 2 % (0-10); HEMATOCRIT 24 % (40-54); LYMPHOCYTES # (AUTO) 2.3 10^3/uL (1.0-4.0); LYMPHOCYTES % (AUTO) 25 % (12-44); MEAN CORPUSCULAR HEMOGLOBIN 29 pg (25-34); MEAN CORPUSCULAR HGB CONC 34 g/dL (32-36); MEAN CORPUSCULAR VOLUME 86 fL (80-99); MEAN PLATELET VOLUME 9.9 fL (9.0-12.2); MONOCYTES # (AUTO) 0.5 10^3/uL (0.0-1.0); MONOCYTES % (AUTO) 6 % (0-12); NEUTROPHILS # (AUTO) 6.4 10^3/uL (1.8-7.8); NEUTROPHILS % (AUTO) 67 % (42-75); PLATELET COUNT 219 10^3/uL (130-400); WHITE BLOOD COUNT 9.5 10^3/uL (4.3-11.0)
[2023-03-21 01:40] LABS: POTASSIUM 4.1 MMOL/L (3.6-5.0)
[2023-03-21 01:42] LABS: CALCIUM 7.1 MG/DL (8.5-10.1)
[2023-03-21 01:43] LABS: TOTAL PROTEIN 5.5 GM/DL (6.4-8.2)
[2023-03-21 01:45] LABS: BILIRUBIN,TOTAL 0.4 MG/DL (0.1-1.0)
[2023-03-21 01:46] LABS: CREATININE SERUM 6.83 MG/DL (0.60-1.30)
[2023-03-21] MEDS ORDERED: inSUlin ASPART 1 UNIT/0.01 ML (PER UNIT) SC ONE (02:45)
[2023-03-21] MEDS ORDERED: NITROGLYCERIN 2% OINT 1 GM UNIT DOSE PACKET TOP ONE (06:30)
[2023-03-21] MEDS ORDERED: DEXTROSE 50% 50 ML (IMS) SYR IV ONE (07:15)
--- NOTE | 2023-03-21 07:30 | Diagnostic Imaging Report ---
INDICATION: Shortness of air, cough and congestion. EXAMINATION: Chest 03/21/2022 COMPARISON: 03/10/2023 FINDINGS: There is a dual-lumen catheter on the right stable from previous imaging. Heart prominent but stable. Pulmonary vasculature congestion noted. Persistent increased airspace opacities and markedly coarsened interstitial markings throughout both lungs still present but improved bilaterally. Infiltrate most pronounced in the medial right lung base. Right effusion small. No pneumothorax. IMPRESSION: 1. Improving but persistent diffuse pulmonary edema and bilateral diffuse infiltrates. 2. Small right effusion. Dictated by: Dictated on workstation # [id number]
[2023-03-21] MEDS ORDERED: FUROSEMIDE INJECTION 40 MG/4 ML VIAL IVP ONE (09:00)
[2023-03-21 16:07] VITALS: BP 192/149
== END 2023-03-21 16:07 | disposition short-term general hospital (02) ==
LOC: EDUNIT# 00:54 → ER 01:02
DX: E10.22 Type 1 diabetes mellitus with diabetic chronic kidney disease (principal); I12.0 Hypertensive chronic kidney disease with stage 5 chronic kidney disease or end stage renal disease; N18.6 End stage renal disease; E10.65 Type 1 diabetes mellitus with hyperglycemia; J81.1 Chronic pulmonary edema; Z99.2 Dependence on renal dialysis
CPT/HCPCS: 36415; 71045; 80053; 82947; 83605; 83880; 84484; 85025; 87040; 87636; 93005; 96372; 96374; 96375